=== PATIENT | male | born 1980 | race Two or more races ===

== ENCOUNTER 2017-07-17 13:47 | Emergency (ER) | payer SELFPAY ==
[~2017-07-17] VITALS: Ht 175.3 cm; Wt 84.0 kg
[2017-07-17 13:48] VITALS: BP 130/88; PULSE 84; RESP 20; TEMP 97.5; O2SAT 97
--- NOTE | 2017-07-17 14:14 | PD ---
HPI Chief Complaint: Suicide Ideation/Attempt Time Seen by Provider: 14:08 Travel History International Travel<30 days: No Contact w/Intl Traveler<30days: No Traveled to known affect area: No History of Present Illness HPI The patient is a 36-year-old male who presents to the emergency department for psychiatric evaluation. The patient states his mother, who is in her 50s, suddenly 2 weeks ago. The patient states he was close to his mother and since her he has had increasing suicidal thoughts. The patient states he has thoughts of "choking out with a bike chain ", with previous history of suicide attempt by choking. He also admits to increased self-medication with illicit drugs including methamphetamines. The patient states he is having auditory hallucinations where he can hear his mother's voice. He is requesting psychiatric evaluation. He does have a history of ADDH per his report, but takes no current medications. He denies any homicidal ideation. He denies any visual hallucinations. PFSH Past Medical History Narrative Medical ADHD Past Surgical History Narrative Surgical Noncontributory Social History Tobacco Use: Yes Substance Use: Yes Allergies-Medications (Allergen,Severity, Reaction): Coded Allergies: No Known Allergies (Unverified , 07/17/17) Reported Meds & Prescriptions Reported Meds & Active Scripts Active No Active Prescriptions or Reported Medications Review of Systems Except as stated in HPI: all other systems reviewed are Neg General / Constitutional: No: Fever Cardiovascular: No: Chest Pain or Discomfort Respiratory: No: Shortness of Breath Gastrointestinal: No: Nausea, Vomiting, Abdominal Pain Neurologic: No: Dizziness Psychiatric: Positive: Anxiety, Depression, Suicidal Ideations, Substance Abuse Physical Exam Narrative GENERAL: Awake, alert, pleasant 36-year-old male who appears his stated age and is in no acute respiratory distress. SKIN: Focused skin assessment warm/dry. HEAD: Atraumatic. Normocephalic. EYES: No injection or drainage. ENT: No nasal bleeding or discharge. Mucous membranes pink and moist. NECK: Trachea midline. No JVD. CARDIOVASCULAR: Regular rate and rhythm. No murmur appreciated. RESPIRATORY: No accessory muscle use. Clear to auscultation. Breath sounds equal bilaterally. GASTROINTESTINAL: Abdomen soft, non-tender, nondistended. MUSCULOSKELETAL: No obvious deformities. No clubbing. No cyanosis. No edema. NEUROLOGICAL: Awake and alert. No obvious cranial nerve deficits. Motor grossly within normal limits. Normal speech. Nonfocal. PSYCHIATRIC: Appropriate mood and affect; insight and judgment normal. Data Data Last Documented VS Vital Signs Date Time Temp Pulse Resp B/P (MAP) Pulse Ox O2 Delivery O2 Flow Rate FiO2 07/17/17 13:48 97.5 84 20 130/88 (102) 97 Room Air Orders Orders Complete Blood Count With Diff (07/17/17 14:09) Comprehensive Metabolic Panel (07/17/17 14:09) Thyroid Stimulating Hormone (07/17/17 14:09) Psych Screen (07/17/17 14:09) Drug Screen, Random Urine (07/17/17 14:09) Alcohol (Ethanol) (07/17/17 14:09) Diet Regular Basic (07/17/17 Dinner) Labs Laboratory Tests Test 07/17/17 14:15 07/17/17 14:35 White Blood Count 7.5 TH/MM3 Red Blood Count 4.78 MIL/MM3 Hemoglobin 15.0 GM/DL Hematocrit 43.6 % Mean Corpuscular Volume 91.1 FL Mean Corpuscular Hemoglobin 31.4 PG Mean Corpuscular Hemoglobin Concent 34.4 % Red Cell Distribution Width 13.2 % Platelet Count 201 TH/MM3 Mean Platelet Volume 9.3 FL Neutrophils (%) (Auto) 56.6 % Lymphocytes (%) (Auto) 32.5 % Monocytes (%) (Auto) 9.3 % Eosinophils (%) (Auto) 1.0 % Basophils (%) (Auto) 0.6 % Neutrophils # (Auto) 4.3 TH/MM3 Lymphocytes # (Auto) 2.4 TH/MM3 Monocytes # (Auto) 0.7 TH/MM3 Eosinophils # (Auto) 0.1 TH/MM3 Basophils # (Auto) 0.0 TH/MM3 CBC Comment DIFF FINAL Differential Comment Blood Urea Nitrogen 15 MG/DL Creatinine 1.47 MG/DL Random Glucose 61 MG/DL Total Protein 8.0 GM/DL Albumin 4.2 GM/DL Calcium Level 8.8 MG/DL Alkaline Phosphatase 126 U/L Aspartate Amino Transf (AST/SGOT) 19 U/L Alanine Aminotransferase (ALT/SGPT) 36 U/L Total Bilirubin 0.9 MG/DL Sodium Level 139 MEQ/L Potassium Level 4.1 MEQ/L Chloride Level 104 MEQ/L Carbon Dioxide Level 28.9 MEQ/L Anion Gap 6 MEQ/L Estimat Glomerular Filtration Rate 54 ML/MIN Thyroid Stimulating Hormone 3rd Gen 2.160 uIU/ML Ethyl Alcohol Level LESS THAN 3 MG/DL Urine Opiates Screen NEG Urine Barbiturates Screen NEG Urine Amphetamines Screen NEG Urine Benzodiazepines Screen NEG Urine Cocaine Screen NEG Urine Cannabinoids Screen NEG MDM Medical Decision Making Medical Screen Exam Complete: Yes Emergency Medical Condition: Yes Medical Record Reviewed: Yes Interpretation(s) Laboratory Tests Test 07/17/17 14:15 07/17/17 14:35 White Blood Count 7.5 TH/MM3 Red Blood Count 4.78 MIL/MM3 Hemoglobin 15.0 GM/DL Hematocrit 43.6 % Mean Corpuscular Volume 91.1 FL Mean Corpuscular Hemoglobin 31.4 PG Mean Corpuscular Hemoglobin Concent 34.4 % Red Cell Distribution Width 13.2 % Platelet Count 201 TH/MM3 Mean Platelet Volume 9.3 FL Neutrophils (%) (Auto) 56.6 % Lymphocytes (%) (Auto) 32.5 % Monocytes (%) (Auto) 9.3 % Eosinophils (%) (Auto) 1.0 % Basophils (%) (Auto) 0.6 % Neutrophils # (Auto) 4.3 TH/MM3 Lymphocytes # (Auto) 2.4 TH/MM3 Monocytes # (Auto) 0.7 TH/MM3 Eosinophils # (Auto) 0.1 TH/MM3 Basophils # (Auto) 0.0 TH/MM3 CBC Comment DIFF FINAL Differential Comment Blood Urea Nitrogen 15 MG/DL Creatinine 1.47 MG/DL Random Glucose 61 MG/DL Total Protein 8.0 GM/DL Albumin 4.2 GM/DL Calcium Level 8.8 MG/DL Alkaline Phosphatase 126 U/L Aspartate Amino Transf (AST/SGOT) 19 U/L Alanine Aminotransferase (ALT/SGPT) 36 U/L Total Bilirubin 0.9 MG/DL Sodium Level 139 MEQ/L Potassium Level 4.1 MEQ/L Chloride Level 104 MEQ/L Carbon Dioxide Level 28.9 MEQ/L Anion Gap 6 MEQ/L Estimat Glomerular Filtration Rate 54 ML/MIN Thyroid Stimulating Hormone 3rd Gen 2.160 uIU/ML Ethyl Alcohol Level LESS THAN 3 MG/DL Urine Opiates Screen NEG Urine Barbiturates Screen NEG Urine Amphetamines Screen NEG Urine Benzodiazepines Screen NEG Urine Cocaine Screen NEG Urine Cannabinoids Screen NEG Differential Diagnosis Differential diagnosis includes grief, adjustment reaction, stress reaction, bereavement, substance induced mood disorder, depressive disorder NOS. Narrative Course Labs are drawn and sent. Psychiatric evaluation was ordered. Labs were noted, creatinine mildly elevated 1.47, otherwise unremarkable. Patient is medically clear to be evaluated by psychiatry. Disposition as per psych. Diagnosis Primary Impression: Bereavement Scripts No Active Prescriptions or Reported Meds Condition: Kt Funes MD Jul 17, 2017 14:14
[2017-07-17 14:58] LABS: AUTOMATED NEUTROPHIL # 4.3 TH/MM3 (1.8-7.7); BASOPHIL % 0.6 % (0.0-2.0); EOSINOPHIL # 0.1 TH/MM3 (0-0.4); HEMATOCRIT 43.6 % (39.0-51.0); HEMO FLAGS DIFF FINAL; LYMPH % 32.5 % (9.0-44.0); LYMPHOCYTE # 2.4 TH/MM3 (1.0-4.8); MEAN CELL VOLUME 91.1 FL (80.0-100.0); MEAN CORPUSCULAR HEMOGLOBIN 31.4 PG (27.0-34.0); MEAN CORPUSCULAR HGB CONC 34.4 % (32.0-36.0); MONO % 9.3 % (0.0-8.0); NEUT % 56.6 % (16.0-70.0); PLATELET COUNT 201 TH/MM3 (150-450); RED BLOOD COUNT 4.78 MIL/MM3 (4.50-5.90); RED CELL DISTRIBUTION WIDTH 13.2 % (11.6-17.2); WHITE BLOOD COUNT 7.5 TH/MM3 (4.0-11.0)
[2017-07-17 15:16] LABS: ALT (GPT) 36 U/L (12-78); ANION GAP 6 MEQ/L (5-15); AST (GOT) 19 U/L (15-37); BICARBONATE 28.9 MEQ/L (21.0-32.0); BLOOD UREA NITROGEN 15 MG/DL (7-18); CHLORIDE 104 MEQ/L (98-107); GLOMERULAR FILTRATION RATE 54 ML/MIN (>89); POTASSIUM 4.1 MEQ/L (3.5-5.1); SODIUM (NA) 139 MEQ/L (136-145)
[2017-07-17 15:26] LABS: ALKALINE PHOSPHATASE 126 U/L (45-117); TOTAL BILIRUBIN ADULT 0.9 MG/DL (0.2-1.0)
[2017-07-17 15:35] LABS: ALCOHOL LESS THAN 3 MG/DL (0-5)
[2017-07-17 23:32] VITALS: BP 114/60; PULSE 73; RESP 20; TEMP 98.1; O2SAT 97
[2017-07-18 02:14] VITALS: BP 111/55; PULSE 72; RESP 20; TEMP 97.8; O2SAT 97
[2017-07-18 05:47] VITALS: BP 108/69; PULSE 77; RESP 18; TEMP 98.3; O2SAT 97
--- NOTE | 2017-07-18 11:36 | PD ---
Physical Exam Time Seen by Provider: 11:34 Luna Mackenzie has evaluated the patient and the patient will be discharged home. Data Data Last Documented VS Vital Signs Date Time Temp Pulse Resp B/P (MAP) Pulse Ox O2 Delivery O2 Flow Rate FiO2 07/18/17 05:47 98.3 77 18 108/69 (82) 97 07/17/17 13:48 Room Air Orders Orders Complete Blood Count With Diff (07/17/17 14:09) Comprehensive Metabolic Panel (07/17/17 14:09) Thyroid Stimulating Hormone (07/17/17 14:09) Psych Screen (07/17/17 14:09) Drug Screen, Random Urine (07/17/17 14:09) Alcohol (Ethanol) (07/17/17 14:09) Diet Regular Basic (07/17/17 Dinner) Diet Regular Basic (07/18/17 Breakfast) Diet Regular Basic (07/18/17 Lunch) Labs Laboratory Tests Test 07/17/17 14:15 07/17/17 14:35 White Blood Count 7.5 TH/MM3 Red Blood Count 4.78 MIL/MM3 Hemoglobin 15.0 GM/DL Hematocrit 43.6 % Mean Corpuscular Volume 91.1 FL Mean Corpuscular Hemoglobin 31.4 PG Mean Corpuscular Hemoglobin Concent 34.4 % Red Cell Distribution Width 13.2 % Platelet Count 201 TH/MM3 Mean Platelet Volume 9.3 FL Neutrophils (%) (Auto) 56.6 % Lymphocytes (%) (Auto) 32.5 % Monocytes (%) (Auto) 9.3 % Eosinophils (%) (Auto) 1.0 % Basophils (%) (Auto) 0.6 % Neutrophils # (Auto) 4.3 TH/MM3 Lymphocytes # (Auto) 2.4 TH/MM3 Monocytes # (Auto) 0.7 TH/MM3 Eosinophils # (Auto) 0.1 TH/MM3 Basophils # (Auto) 0.0 TH/MM3 CBC Comment DIFF FINAL Differential Comment Blood Urea Nitrogen 15 MG/DL Creatinine 1.47 MG/DL Random Glucose 61 MG/DL Total Protein 8.0 GM/DL Albumin 4.2 GM/DL Calcium Level 8.8 MG/DL Alkaline Phosphatase 126 U/L Aspartate Amino Transf (AST/SGOT) 19 U/L Alanine Aminotransferase (ALT/SGPT) 36 U/L Total Bilirubin 0.9 MG/DL Sodium Level 139 MEQ/L Potassium Level 4.1 MEQ/L Chloride Level 104 MEQ/L Carbon Dioxide Level 28.9 MEQ/L Anion Gap 6 MEQ/L Estimat Glomerular Filtration Rate 54 ML/MIN Thyroid Stimulating Hormone 3rd Gen 2.160 uIU/ML Ethyl Alcohol Level LESS THAN 3 MG/DL Urine Opiates Screen NEG Urine Barbiturates Screen NEG Urine Amphetamines Screen NEG Urine Benzodiazepines Screen NEG Urine Cocaine Screen NEG Urine Cannabinoids Screen NEG MDM Supervised Visit with [facility]: No Narrative Course Avril has evaluated the patient and the patient will be discharged home. The patient contracts safety. He denies suicidal or homicidal ideations. Patient will be provided outpatient resources to follow up with [facility]. He has family and friends for support. Patient is medically cleared for discharge. Diagnosis Primary Impression: Bereavement Referrals: [facility] (Out patient) call for appointment Patient Instructions: General Instructions, Polysubstance Abuse (ED) Departure Forms: Tests/Procedures Additional Instruction: Contract safety to your self and others Follow-up with psychiatry Follow-up with primary care provider Follow-up with Yuan Mckee Return to the emergency department immediately with worsening of symptoms Med/Other Pt SpecificInfo: No Meds Exist/No RX given Scripts No Active Prescriptions or Reported Meds Disposition: 01 DISCHARGE HOME Condition: Stable Yanci Osborne Jul 18, 2017 11:36
--- NOTE | 2017-07-18 11:36 | PD ---
History of Present Illness Chief Complaint: Suicide Ideation/Attempt Time Seen by Provider: 11:00 Travel History International Travel<30 Days: No Contact w/Intl Traveler<30days: No Known affected area: No Legal Status Legal Status: Voluntary History of Present Illness: History of Present Illness HPI The patient is a 36-year-old male with a reported history of substance use disorder who presents to the emergency department on a voluntary basis for psychiatric evaluation. His initial complaint at arrival to [facility] was that since his mother 2 weeks ago he has been feeling suicidal with thoughts of choking himself with a bicycle chain, hearing his mother's voice, relapsed on heroin and methamphetamine use after a 2 year period of being clean. Patient was monitored in secure environment for almost 24 hours. He did not exhibit any behavioral concerns and no suicidality. Ate well and slept well. He is seen this morning. agency development manager [place] present. The patient is alert, oriented, maintaining basic hygiene. Speech is clear and goal directed. He is vested in being admitted to inpatient. He was released from [facility] 2 days ago after a 9 day stay as per his report. He attempted to go back there but " they did not admit me" so he came here instead . He did not follow up with medications upon his discharge. He is currently homeless. " I was staying with my grandparents but they told me I couldn't stay there anymore. I have no place to go". Patient is also requesting that I provide him with a diagnosis and states " I think I am bipolar or I have anxiety". Patient did not verbalize any suicidal or homicidal ideation, intent or plan. He did not appear to be internally stimulated. No daryn and no objective clinical signs of depression. PFSH Past Medical History Medical History: Denies Significant Hx Diminished Hearing: No Tetanus Vaccination: Unknown Influenza Vaccination: No ?: Not Psychiatric History Psychiatric History Hx Psychiatric Treatment: DENIES any History of Inpatient Treatment: No ([facility] last week x 9 days. ) Guns or firearms in home: No Social History Single male. Unemployed. Homeless. Works as a cdl flatbed truck driver. Reports he moved to [facility] 2 weeks ago from [place]. Hx Alcohol Use: No Hx Tobacco Use: Yes Hx Substance Use: Yes (History of ampheatmine abuse x 5 years. Had been clean x 2 years. ) Substance Use Type: Amphetamines-Stimulants, Heroin Other Substances Used: current toxiocology is negative Hx of Substance Use Treatment: No Family Psychiatric History Negative Allergies-Medications (Allergen,Severity, Reaction): Coded Allergies: No Known Allergies (Unverified , 07/17/17) Reported Meds & Prescriptions Reported Meds & Active Scripts Active No Active Prescriptions or Reported Medications Exam Alert: Yes Dinosaur: Person (ox4) Mood: Calm Affect: Appropriate Speech: Clear, Logical Eye Contact: Normal Memory Intact: Comment (No impairment) Hallucinations: Other (negative) Delusions: No Suicidal: Ideation (negative) Homicidal: Ideation (Negative) Insight/Judgement Poor. not impaired. MDM Medical Decision Making Medical Record Reviewed: Yes Assessment/Plan The patient is a 36-year-old male with a reported history of substance use disorder who presents to the emergency department on a voluntary basis for psychiatric evaluation reporting he has been feeling suicidal. Patient reports he was released from [facility] earlier in the day after a 9 day stay. . Patient has been monitored for safety for nearly twenty four hours and he has presented no indication of any acute psychiatric symptomatology, no suicidality. It is highly suspected that he may be malingering symptoms in order to obtain usp. He is requesting to be provided with a psychiatric diagnosis . he is requesting assistance with his medications as well as with housing. agency development manager will provide him with such information. he will be discharged to follow up with [facility]. Orders Orders Complete Blood Count With Diff (07/17/17 14:09) Comprehensive Metabolic Panel (07/17/17 14:09) Thyroid Stimulating Hormone (07/17/17 14:09) Psych Screen (07/17/17 14:09) Drug Screen, Random Urine (07/17/17 14:09) Alcohol (Ethanol) (07/17/17 14:09) Diet Regular Basic (07/17/17 Dinner) Diet Regular Basic (07/18/17 Breakfast) Diet Regular Basic (07/18/17 Lunch) Results Vital Signs Date Time Temp Pulse Resp B/P (MAP) Pulse Ox O2 Delivery O2 Flow Rate FiO2 07/18/17 05:47 98.3 77 18 108/69 (82) 97 07/18/17 02:14 97.8 72 20 111/55 (73) 97 07/17/17 23:32 98.1 73 20 114/60 (78) 97 07/17/17 13:48 97.5 84 20 130/88 (102) 97 Room Air Laboratory Tests Test 07/17/17 14:15 07/17/17 14:35 White Blood Count 7.5 Red Blood Count 4.78 Hemoglobin 15.0 Hematocrit 43.6 Mean Corpuscular Volume 91.1 Mean Corpuscular Hemoglobin 31.4 Mean Corpuscular Hemoglobin Concent 34.4 Red Cell Distribution Width 13.2 Platelet Count 201 Mean Platelet Volume 9.3 Neutrophils (%) (Auto) 56.6 Lymphocytes (%) (Auto) 32.5 Monocytes (%) (Auto) 9.3 Eosinophils (%) (Auto) 1.0 Basophils (%) (Auto) 0.6 Neutrophils # (Auto) 4.3 Lymphocytes # (Auto) 2.4 Monocytes # (Auto) 0.7 Eosinophils # (Auto) 0.1 Basophils # (Auto) 0.0 CBC Comment DIFF FINAL Differential Comment Blood Urea Nitrogen 15 Creatinine 1.47 Random Glucose 61 Total Protein 8.0 Albumin 4.2 Calcium Level 8.8 Alkaline Phosphatase 126 Aspartate Amino Transf (AST/SGOT) 19 Alanine Aminotransferase (ALT/SGPT) 36 Total Bilirubin 0.9 Sodium Level 139 Potassium Level 4.1 Chloride Level 104 Carbon Dioxide Level 28.9 Anion Gap 6 Estimat Glomerular Filtration Rate 54 Thyroid Stimulating Hormone 3rd Gen 2.160 Ethyl Alcohol Level LESS THAN 3 Urine Opiates Screen NEG Urine Barbiturates Screen NEG Urine Amphetamines Screen NEG Urine Benzodiazepines Screen NEG Urine Cocaine Screen NEG Urine Cannabinoids Screen NEG Diagnosis Primary Impression: Substance induced mood disorder Additional Impression: Methamphetamine abuse Psychiatrically Cleared: Yes Referrals: [facility] (Out patient) call for appointment Departure Forms: Tests/Procedures Patient Instructions: General Instructions, Polysubstance Abuse (ED) Med/ Other Pt Specific Info: No Change to Meds Prescriptions No Active Prescriptions or Reported Meds Disposition: 01 DISCHARGE HOME Condition: Stable Problem Qualifiers Avril Pabon Jul 18, 2017 11:36
== END 2017-07-18 11:56 | disposition home or self-care (01) ==
LOC: NEPD 13:47 → NEPJ 07-18 11:56
DX: F19.94 Other psychoactive substance use, unspecified with psychoactive substance-induced mood disorder (principal); F15.10 Other stimulant abuse, uncomplicated; R45.851 Suicidal ideations; F41.9 Anxiety disorder, unspecified; Z59.0 Homelessness; Z72.0 Tobacco use
CPT/HCPCS: 80053; 80307; 84443; 85025; 99284